=== PATIENT | female | born 1970 ===

== ENCOUNTER 2024-07-14 08:37 | Day surgery (SDC) | payer OTHER ==
[~2024-07-14 08:37] MED LIST: EMGALITY P120 MG/1 M; LIPITOR40 MG PO; TOPAMAX25 MG PO
[2024-07-14] MEDS ORDERED: CEFAZOLIN SODIUM 1,000 MG VIAL ONE (11:08)
[2024-07-14] MEDS ORDERED: POVIDONE-IODINE 118 ML BOTT TOP ONE ×2 (13:21→14:54)
[2024-07-14] MEDS ORDERED: METHYLERGONOVINE MALEATE 0.2 MG/ML AMPUL ONE (14:57)
[2024-07-14] MEDS ORDERED: MEGESTROL ACETA40 MG PO (16:59)
== END 2024-07-14 18:50 | disposition home or self-care (01) ==
LOC: CIR.AMB 08:37
PROVIDERS: ATTEND Obstetrics & Gynecology
DX: N85.02 Endometrial intraepithelial neoplasia [EIN] (principal); N93.8 Other specified abnormal uterine and vaginal bleeding